=== PATIENT | male | born 1960 | race Asian ===

== ENCOUNTER 2016-03-29 06:49 | Outpatient (CLI) | payer OTHER ==
[2016-03-29 08:06] LABS: ALB/GLOB RATIO 1.3 (1.0-1.8); ALKALINE PHOSPHATASE 35 U/L (34-104); ANION GAP 8.4 (7.0-16.0); BILIRUBIN,TOTAL 0.4 mg/dL (0.3-1.0); BUN - UREA NITROGEN 12 mg/dL (7-25); BUN/CREATININE RATIO 17.1; CALCIUM SERUM 9.5 mg/dL (8.6-10.3); CARBON DIOXIDE 28.1 mEq/L (21.0-31.0); CHLORIDE 101 mEq/L (98-107); CHOLESTEROL 208 mg/dL (<200); CREATININE - SERUM 0.7 mg/dL (0.7-1.3); GLUCOSE 297 mg/dL (70-105); POTASSIUM SERUM 3.5 mEq/L (3.5-5.1); SGOT 26 U/L (13-39); SGPT/ALT 43 U/L (7-52); SODIUM SERUM 134 mEq/L (136-145); TRIGLYCERIDES 338 mg/dL (<150)
[2016-03-29 08:23] LABS: URINE COLOR YELLOW
[2016-03-29 08:24] LABS: URINE BILIRUBIN NEGATIVE (NEGATIVE); URINE BLOOD NEGATIVE (NEGATIVE); URINE GLUCOSE (UA) 500 mg/dL (NEGATIVE); URINE KETONE TRACE mg/dL (NEGATIVE); URINE PROTEIN 30 mg/dL (NEGATIVE); URINE UROBILINOGEN 0.2 E.U./dL (0.2 - 1.0)
[2016-03-29 08:29] LABS: % BASOPHILS 0.8 % (0.0-2.0); % EOSINOPHILS 2.4 % (0.0-5.0); % LYMPHOCYTES 27.1 % (20.0-50.0); % MONOCYTES 9.6 % (2.0-10.0); % NEUTROPHILS 60.1 % (40.0-80.0); HEMATOCRIT 43.1 % (39.0-49.0); MEAN CELL VOLUME 89.1 fl (80-99); MEAN CORPUSCULAR HEMOGLOBIN 31.1 pg (26.0-30.0); MEAN CORPUSCULAR HGB CONC 34.9 pg (28.0-36.0); MEAN PLATELET VOLUME 8.6 fl; NEUTROPHILE ABSOLUTE 4.7 Th/cmm (1.8-8.0); PLATELET COUNT 285 Th/cmm (150-400); RED BLOOD COUNT 4.84 Mil/cmm (4.30-5.70); RED CELL DISTRIBUTION WIDTH 11.6 % (11.5-20.0)
[2016-03-29 08:53] LABS: URINE BACTERIA OCCASIONAL /hpf (NONE SEEN); URINE EPITHELIAL CELLS RARE /lpf (FEW); URINE RBC NONE SEEN /hpf (0-5); URINE WBC 0-2 /hpf (0-5)
[2016-03-30 12:24] LABS: MICROALBUMIN RANDOM RUINE 93.8 ug/mL (Not Estab.)
== END 2016-03-29 07:10 | disposition home or self-care (01) ==
LOC: LAB 06:49
PROVIDERS: ATTEND Family Medicine
DX: Z00.00 Encounter for general adult medical examination without abnormal findings (principal); E11.9 Type 2 diabetes mellitus without complications; R97.20 Elevated prostate specific antigen [PSA]
CPT/HCPCS: 36415-UA; 80053-TC; 80061-TC; 81001-TC; 82043-90; 83036-90; 84153-90; 85025-TC

== ENCOUNTER 2016-08-13 06:34 | Outpatient (CLI) | payer OTHER ==
[2016-08-13 07:25] LABS: URINE COLOR YELLOW
[2016-08-13 07:26] LABS: URINE BILIRUBIN NEGATIVE (NEGATIVE); URINE GLUCOSE (UA) 500 mg/dL (NEGATIVE); URINE KETONE TRACE mg/dL (NEGATIVE)
[2016-08-13 07:27] LABS: URINE BLOOD NEGATIVE (NEGATIVE); URINE PH 5.5; URINE PROTEIN NEGATIVE (NEGATIVE); URINE UROBILINOGEN 0.2 E.U./dL (0.2 - 1.0)
[2016-08-13 07:36] LABS: GLUCOSE 268 mg/dL (70-105); SGOT 31 U/L (13-39); SGPT/ALT 52 U/L (7-52); URINE BACTERIA OCCASIONAL /hpf (NONE SEEN); URINE EPITHELIAL CELLS RARE /lpf (FEW); URINE RBC NONE SEEN /hpf (0-5); URINE WBC 0-2 /hpf (0-5)
[2016-08-14 16:12] LABS: MICROALBUMIN RANDOM RUINE 32.1 ug/mL (Not Estab.)
== END 2016-08-13 07:38 | disposition home or self-care (01) ==
LOC: LAB 06:34
PROVIDERS: ATTEND Family Medicine
DX: E11.9 Type 2 diabetes mellitus without complications (principal); E78.5 Hyperlipidemia, unspecified
CPT/HCPCS: 36415-UA; 81001-TC; 82043-90; 82947-TC; 83036-90; 84450-TC; 84460-TC

== ENCOUNTER 2017-05-26 06:18 | Outpatient (CLI) | payer OTHER ==
[2017-05-26 06:32] LABS: URINE MICROSCOPIC INDICATED? YES; URINE SOURCE RANDOM
[2017-05-26 06:42] LABS: URINE BILIRUBIN NEGATIVE (NEGATIVE); URINE BLOOD NEGATIVE (NEGATIVE); URINE GLUCOSE (UA) >=1000 mg/dL (NEGATIVE); URINE KETONE TRACE mg/dL (NEGATIVE); URINE LEUKOCYTE ESTERASE NEGATIVE (NEGATIVE); URINE NITRATE NEGATIVE (NEGATIVE); URINE PH 5.5 (4.6 - 8.0); URINE PROTEIN NEGATIVE (NEGATIVE); URINE UROBILINOGEN 0.2 E.U./dL (0.2 - 1.0)
[2017-05-26 06:44] LABS: URINE CLARITY CLEAR (CLEAR); URINE COLOR YELLOW
[2017-05-26 06:51] LABS: URINE RBC NONE SEEN /hpf (0-5); URINE WBC 0-2 /hpf (0-5)
[2017-05-26 06:52] LABS: URINE BACTERIA NONE SEEN /hpf (NONE SEEN); URINE EPITHELIAL CELLS RARE /lpf (FEW)
[2017-05-26 06:58] LABS: ALB/GLOB RATIO 1.3 (1.0-1.8); ALKALINE PHOSPHATASE 46 U/L (34-104); ANION GAP 14.1 (7.0-16.0); BILIRUBIN,TOTAL 0.4 mg/dL (0.3-1.0); BUN - UREA NITROGEN 19 mg/dL (7-25); CALCIUM SERUM 10.3 mg/dL (8.6-10.3); CARBON DIOXIDE 30.1 mEq/L (21.0-31.0); CHLORIDE 93 mEq/L (98-107); CHOLESTEROL 196 mg/dL (<200); CREATININE - SERUM 0.9 mg/dL (0.7-1.3); GFR AFRICAN-AMERICAN > 60.0 ml/min (>90); GFR NON AFRICAN-AMERICAN > 60.0 ml/min; GLUCOSE 259 mg/dL (70-105); HDL -HIGH DENSITY LIPOPROTEIN 30 mg/dL (23-92); POTASSIUM SERUM 3.2 mEq/L (3.5-5.1); SGOT 27 U/L (13-39); SGPT/ALT 39 U/L (7-52); SODIUM SERUM 134 mEq/L (136-145); TOTAL PROTEIN,SERUM 8.8 gm/dL (6.0-8.3); TRIGLYCERIDES 307 mg/dL (<150)
[2017-05-26 07:00] LABS: % BASOPHILS 0.4 % (0.0-2.0); % EOSINOPHILS 1.3 % (0.0-5.0); % MONOCYTES 9.9 % (2.0-10.0); % NEUTROPHILS 63.4 % (40.0-80.0); EOSINOPHILE ABSOLUTE 0.1 Th/cmm (0.1-0.4); HEMATOCRIT 48.5 % (41.0-60); HEMOGLOBIN 16.3 gm/dL (12-16); MEAN CELL VOLUME 88.4 fl (80-99); MEAN CORPUSCULAR HEMOGLOBIN 29.8 pg (26.0-30.0); MEAN CORPUSCULAR HGB CONC 33.7 pg (28.0-36.0); MEAN PLATELET VOLUME 8.2 fl; MONOCYTE ABSOLUTE 0.8 Th/cmm (0.3-1.0); NEUTROPHILE ABSOLUTE 5.3 Th/cmm (1.8-8.0); PLATELET COUNT 318 Th/cmm (150-400); RED BLOOD COUNT 5.49 Mil/cmm (4.30-5.70); RED CELL DISTRIBUTION WIDTH 12.3 % (11.5-20.0); WHITE BLOOD COUNT 8.2 Th/cmm (4.8-10.8)
[2017-05-26 20:10] LABS: A1C % 10.5 % (4.0-6.0)
[2017-05-30 07:37] LABS: MICROALBUMIN RANDOM RUINE 26.3
== END 2017-05-26 07:02 | disposition home or self-care (01) ==
LOC: LAB 06:18
PROVIDERS: ATTEND Family Medicine
DX: Z00.01 Encounter for general adult medical examination with abnormal findings (principal); E11.9 Type 2 diabetes mellitus without complications; R97.20 Elevated prostate specific antigen [PSA]
CPT/HCPCS: 36415-UA; 80053-TC; 80061-TC; 81001-TC; 82043-90; 83036-90; 84153-90; 84443-TC; 85025-TC

== ENCOUNTER 2017-10-26 06:17 | Outpatient (CLI) | payer OTHER ==
[2017-10-26 06:38] LABS: URINE SOURCE MIDSTREAM
[2017-10-26 06:47] LABS: % BASOPHILS 0.6 % (0.0-2.0); % EOSINOPHILS 1.9 % (0.0-5.0); % LYMPHOCYTES 30.1 % (20.0-50.0); % MONOCYTES 11.5 % (2.0-10.0); % NEUTROPHILS 55.9 % (40.0-80.0); EOSINOPHILE ABSOLUTE 0.1 Th/cmm (0.1-0.4); HEMATOCRIT 46.5 % (41.0-60); MEAN CELL VOLUME 88.9 fl (80-99); MEAN CORPUSCULAR HEMOGLOBIN 30.5 pg (26.0-30.0); MEAN CORPUSCULAR HGB CONC 34.3 pg (28.0-36.0); MEAN PLATELET VOLUME 7.9 fl; MONOCYTE ABSOLUTE 0.8 Th/cmm (0.3-1.0); NEUTROPHILE ABSOLUTE 3.7 Th/cmm (1.8-8.0); PLATELET COUNT 285 Th/cmm (150-400); RED BLOOD COUNT 5.23 Mil/cmm (4.30-5.70); URINE BILIRUBIN NEGATIVE (NEGATIVE); URINE BLOOD NEGATIVE (NEGATIVE); URINE GLUCOSE (UA) >=1000 mg/dL (NEGATIVE); URINE KETONE NEGATIVE (NEGATIVE); URINE LEUKOCYTE ESTERASE NEGATIVE (NEGATIVE); URINE MICROSCOPIC INDICATED? YES; URINE NITRATE NEGATIVE (NEGATIVE); URINE PH 5.5 (4.6 - 8.0); URINE PROTEIN NEGATIVE (NEGATIVE); URINE UROBILINOGEN 0.2 E.U./dL (0.2 - 1.0); WHITE BLOOD COUNT 6.6 Th/cmm (4.8-10.8)
[2017-10-26 07:06] LABS: URINE COLOR YELLOW
[2017-10-26 07:09] LABS: URINE BACTERIA NONE SEEN /hpf (NONE SEEN); URINE CLARITY SLIGHTLY HAZY (CLEAR); URINE EPITHELIAL CELLS RARE /lpf (FEW); URINE RBC 0-2 /hpf (0-5); URINE WBC 0-2 /hpf (0-5)
[2017-10-26 07:22] LABS: ALB/GLOB RATIO 1.4 (1.0-1.8); ALBUMIN 4.8 gm/dL (4.2-5.5); ALKALINE PHOSPHATASE 39 U/L (34-104); ANION GAP 13.4 (7.0-16.0); BILIRUBIN,TOTAL 0.4 mg/dL (0.3-1.0); BUN - UREA NITROGEN 19 mg/dL (7-25); CALCIUM SERUM 9.9 mg/dL (8.6-10.3); CARBON DIOXIDE 28.8 mEq/L (21.0-31.0); CHLORIDE 95 mEq/L (98-107); CHOLESTEROL 192 mg/dL (<200); GFR AFRICAN-AMERICAN > 60.0 ml/min (>90); GFR NON AFRICAN-AMERICAN > 60.0 ml/min; GLUCOSE 302 mg/dL (70-105); HDL -HIGH DENSITY LIPOPROTEIN 32 mg/dL (23-92); POTASSIUM SERUM 3.2 mEq/L (3.5-5.1); SGOT 27 U/L (13-39); SGPT/ALT 48 U/L (7-52); SODIUM SERUM 134 mEq/L (136-145); TOTAL PROTEIN,SERUM 8.2 gm/dL (6.0-8.3); TRIGLYCERIDES 325 mg/dL (<150)
[2017-10-27 13:21] LABS: CREATININEURINE 68.2 mg/dL (Not Estab.); MICROALBUMIN RANDOM RUINE 27.2 ug/mL (Not Estab.)
== END 2017-10-26 06:46 | disposition home or self-care (01) ==
LOC: LAB 06:17
PROVIDERS: ATTEND Family Medicine
DX: Z00.01 Encounter for general adult medical examination with abnormal findings (principal); E11.9 Type 2 diabetes mellitus without complications; R97.20 Elevated prostate specific antigen [PSA]
CPT/HCPCS: 36415-UA; 80053-TC; 80061-TC; 81001-TC; 82043-90; 82570-TC; 83036-90; 84153-90; 84443-TC; 85025-TC

== ENCOUNTER 2018-07-27 06:11 | Outpatient (CLI) | payer OTHER ==
[2018-07-27 06:46] LABS: URINE SOURCE RANDOM
[2018-07-27 06:53] LABS: EOSINOPHILE ABSOLUTE 0.1 Th/cmm (0.1-0.4); MONOCYTE ABSOLUTE 0.8 Th/cmm (0.3-1.0); NEUTROPHILE ABSOLUTE 6.1 Th/cmm (1.8-8.0)
[2018-07-27 07:04] LABS: URINE BILIRUBIN NEGATIVE (NEGATIVE); URINE BLOOD NEGATIVE (NEGATIVE); URINE GLUCOSE (UA) >=1000 mg/dL (NEGATIVE); URINE KETONE 15 mg/dL (NEGATIVE); URINE LEUKOCYTE ESTERASE NEGATIVE (NEGATIVE); URINE MICROSCOPIC INDICATED? YES; URINE NITRATE NEGATIVE (NEGATIVE); URINE PH 5.5 (4.6 - 8.0); URINE PROTEIN NEGATIVE (NEGATIVE); URINE UROBILINOGEN 0.2 E.U./dL (0.2 - 1.0)
[2018-07-27 07:10] LABS: ALB/GLOB RATIO 1.6 (1.0-1.8); ALKALINE PHOSPHATASE 43 U/L (34-104); ANION GAP 17.9 (7.0-16.0); BILIRUBIN,TOTAL 0.7 mg/dL (0.3-1.0); BUN - UREA NITROGEN 19 mg/dL (7-25); CARBON DIOXIDE 26.3 mEq/L (21.0-31.0); CHLORIDE 96 mEq/L (98-107); CHOLESTEROL 224 mg/dL (<200); GFR AFRICAN-AMERICAN > 60.0 ml/min (>90); GFR NON AFRICAN-AMERICAN > 60.0 ml/min; GLUCOSE 264 mg/dL (70-105); HDL -HIGH DENSITY LIPOPROTEIN 32 mg/dL (23-92); POTASSIUM SERUM 3.2 mEq/L (3.5-5.1); SGOT 38 U/L (13-39); SGPT/ALT 57 U/L (7-52); SODIUM SERUM 137 mEq/L (136-145); TOTAL PROTEIN,SERUM 8.1 gm/dL (6.0-8.3); TRIGLYCERIDES 263 mg/dL (<150)
[2018-07-27 07:19] LABS: % BASOPHILS 0.7 % (0.0-2.0); % LYMPHOCYTES 21.3 % (20.0-50.0); % MONOCYTES 8.9 % (2.0-10.0); % NEUTROPHILS 68.1 % (40.0-80.0); BASOPHILE ABSOLUTE 0.1 Th/cumm (0-0.2); HEMATOCRIT 46.4 % (41.0-60); HEMOGLOBIN 15.8 gm/dL (12-16); LYMPHOCYTE ABSOLUTE 1.9 Th/cmm (1.5-3.0); MEAN CELL VOLUME 88.7 fl (80-99); MEAN CORPUSCULAR HEMOGLOBIN 30.1 pg (26.0-30.0); PLATELET COUNT 327 Th/cmm (150-400); RED BLOOD COUNT 5.23 Mil/cmm (4.30-5.70)
[2018-07-27 07:26] LABS: URINE CLARITY CLEAR (CLEAR); URINE COLOR YELLOW
[2018-07-27 07:31] LABS: URINE BACTERIA FEW /hpf (NONE SEEN); URINE EPITHELIAL CELLS OCCASIONAL /lpf (FEW); URINE RBC 0-2 /hpf (0-5); URINE WBC 0-2 /hpf (0-5)
[2018-07-28 08:09] LABS: MICROALBUMIN RANDOM RUINE 26.2 ug/mL (Not Estab.)
[2018-07-28 08:09] LABS: A1C 9.8 % (4.8-5.6); PROSTATE SPECIFIC ANTIGEN 0.4 ng/mL (0.0-4.0)
== END 2018-07-27 06:30 | disposition home or self-care (01) ==
LOC: LAB 06:11
PROVIDERS: ATTEND Family Medicine
DX: Z00.00 Encounter for general adult medical examination without abnormal findings (principal); R94.6 Abnormal results of thyroid function studies; E11.9 Type 2 diabetes mellitus without complications
CPT/HCPCS: 36415-UA; 80053-TC; 80061-TC; 81001-TC; 82043-90; 83036-90; 84153-90; 84443-TC; 85025-TC